=== PATIENT | female | born 1990 | race Caucasian/White ===

== ENCOUNTER 2023-08-02 18:53 | Emergency (ER) | payer BC ==
[2023-08-02] MEDS ORDERED: hydrALAZINE 20 MG/ML VIAL ONE (19:26)
[2023-08-02 20:23] LABS: #Basophils 0.1 thou/uL (0.0-0.2); #Monocytes 0.9 thou/uL (0.11-0.59); #Neutrophils 8.8 thou/uL (1.40-6.50); %Basophils 0.8 % (0.0-1.0); %Eosinophils 0.3 % (0.0-10.0); %Lymphocytes 16.4 % (21.0-51.0); %Monocytes 7.5 % (0.0-10.0); %Neutrophils 74.8 % (42.0-75.0); Hematocrit 39.7 % (36.0-47.0); Hemoglobin 13.8 g/dL (12.0-16.0); Mean Corpuscular HGB CONC 34.8 g/dL (32.0-36.0); Mean Corpuscular Hemoglobin 29.6 pg (27.0-31.0); Mean Corpuscular Volume 85.2 fl (78.0-98.0); Mean Platelet Volume 8.5 fL (7.4-10.4); Platelet Count 417 10x3/uL (130-400); RBC Distribution Width 13.1 % (11.5-14.5); Red Blood Cell (RBC) Count 4.66 mill/uL (4.20-5.40); White Blood Cell (WBC) Count 11.8 10x3/uL (4.8-10.8)
[2023-08-02 20:39] LABS: ALT (SGPT) 29 U/L (8-55); AST (SGOT) 31 U/L (5-34); Albumin 4.5 g/dL (3.5-5.0); Alkaline Phosphatase 80 U/L (40-110); Anion Gap 15 mmol/L (10-20); BUN (Urea Nitrogen) 8 mg/dL (7.0-18.7); Bilirubin, Total 0.8 mg/dL (0.2-1.2); Calc. Creatinine Clearance 0 mL/min (70-130); Carbon Dioxide 19 mmol/L (22-29); Chloride 102 mmol/L (98-107); Estimated GFR 108; Globulin 3.5 g/dL (2.4-3.5); Glucose 104 mg/dL (70-105); Potassium 2.8 mmol/L (3.5-5.1); Sodium 133 mmol/L (136-145)
[2023-08-02 20:40] LABS: Acetaminophen Less than 10 mcg/mL (10.0-30.0); Alcohol Less than 10.0 mg/dL (Less than 10); Lipase 37 U/L (8-78); Magnesium 1.4 mg/dL (1.6-2.6); Salicylate Less than 8.0 mg/dL (15.0-30.0)
[2023-08-02 20:43] LABS: Troponin I Less than 0.010 ng/mL (< 0.028)
[2023-08-02] MEDS ORDERED: Potassium Chloride 20 MEQ TAB ONE (21:08)
[2023-08-02] MEDS ORDERED: Magnesium 2 GM/50 ML BAG (IN WATER) ONE (21:08)
== END 2023-08-02 22:25 | disposition home or self-care (01) ==
LOC: ERS 18:53
DX: I10 Essential (primary) hypertension (principal); R20.0 Anesthesia of skin; F41.9 Anxiety disorder, unspecified; F17.210 Nicotine dependence, cigarettes, uncomplicated; Z55.6 Problems related to health literacy
CPT/HCPCS: 36415; 71045; 80053; 80307; 83690; 83735; 84443; 84484; 85025; 93005; 96365; 96375; J0360; J3475